=== PATIENT | female | born 1980 | race Caucasian/White ===

== ENCOUNTER 2017-03-21 19:57 | Emergency (ER) | payer MEDICAID ==
[~2017-03-21] VITALS: Ht 160 cm; Wt 63.0 kg
[2017-03-22] MEDS ORDERED: IBUPROFEN 600MG TABLET PO ONE (00:45)
[2017-03-22 01:47] VITALS: BP 127/75
== END 2017-03-22 01:49 | disposition home or self-care (01) ==
LOC: ER 19:58
DX: M54.5 Low back pain (principal); F17.210 Nicotine dependence, cigarettes, uncomplicated; Z98.890 Other specified postprocedural states
CPT/HCPCS: 99282

== ENCOUNTER 2018-02-01 12:46 | Emergency (ER) | payer MEDICAID, OTHER ==
[~2018-02-01] VITALS: Ht 160 cm; Wt 61.0 kg
[2018-02-01] MEDS ORDERED: IBUPROFEN 600MG TABLET PO ONE (14:15)
[2018-02-01] MEDS ORDERED: ONDANSETRON 4MG ODT PO ONE (14:15)
[2018-02-01 14:25] LABS: HEMATOCRIT. 38.4 % (36.0-48.0); HEMOGLOBIN. 13.3 g/dL (12.0-16.0); MEAN CORPUSCULAR HEMOGLOBIN 31.1 pg (28.0-32.0); MEAN CORPUSCULAR VOLUME 89.9 fL (81.0-99.0); MEAN PLATELET VOLUME 10.3 fl (7.4-10.4); PLATELET 169 x1000/uL (130-400); RED BLOOD CELL COUNT 4.27 mill/uL (4.2-5.4); RED CELL DISTRIBUTION WIDTH 14.2 % (11.6-14.6)
[2018-02-01 14:29] LABS: CHLORIDE 109 mEq/L (98-107); PROTHROMBIN TIME 10.2 sec (9.1-11.1)
[2018-02-01 14:38] LABS: HCG SCREEN NEGATIVE
[2018-02-01 15:18] LABS: CLARITY URINE TURBID (CLEAR); COLOR URINE ORANGE (YELLOW); KETONES URINE NEGATIVE (NEGATIVE); LEUKOCYTE ESTERASE URINE TRACE (NEGATIVE); NITRITE URINE NEGATIVE (NEGATIVE); OCCULT BLOOD URINE 3+ (NEGATIVE); PH URINE >=9.0 (4.5-8.0); PROTEIN URINE 1+ (NEGATIVE); SPECIFIC GRAVITY URINE 1.019 (1.005-1.030)
[2018-02-01 15:19] LABS: PLATELET ESTIMATE NORMAL
[2018-02-01 16:16] VITALS: BP 136/89
== END 2018-02-01 16:17 | disposition home or self-care (01) ==
LOC: ER 12:46
DX: N30.80 Other cystitis without hematuria (principal); Z98.890 Other specified postprocedural states
CPT/HCPCS: 36415; 74018; 80053; 81003; 83690; 84703; 85025; 85610; 99285; Q0162

== ENCOUNTER 2018-04-04 21:03 | Emergency (ER) | payer OTHER ==
[~2018-04-04] VITALS: Ht 162.6 cm; Wt 62.0 kg
[2018-04-05] VITALS: BP 136/85
== END 2018-04-05 00:31 | disposition home or self-care (01) ==
LOC: ER 21:03
DX: J30.9 Allergic rhinitis, unspecified (principal); R03.0 Elevated blood-pressure reading, without diagnosis of hypertension
CPT/HCPCS: 99283

== ENCOUNTER 2019-01-21 18:44 | Emergency (ER) | payer OTHER ==
[~2019-01-21] VITALS: Ht 162.6 cm; Wt 63.5 kg
[2019-01-21] MEDS ORDERED: IBUPROFEN 600MG TABLET PO STA (22:15)
[2019-01-21 23:17] VITALS: BP 118/58
== END 2019-01-21 23:40 | disposition home or self-care (01) ==
LOC: ER 18:44
DX: S92.534A Nondisplaced fracture of distal phalanx of right lesser toe(s), initial encounter for closed fracture (principal); W22.8XXA Striking against or struck by other objects, initial encounter; Y93.89 Activity, other specified; Y92.89 Other specified places as the place of occurrence of the external cause; Y99.8 Other external cause status
CPT/HCPCS: 29515; 73660; 81025; 99283; J7040

== ENCOUNTER 2019-09-01 15:24 | Emergency (ER) | payer OTHER ==
[~2019-09-01] VITALS: Ht 167.6 cm; Wt 68.0 kg
[2019-09-01 17:16] LABS: CHLORIDE 106 mEq/L (98-107)
[2019-09-01 17:22] LABS: EOSINOPHILS % 7.5 % (0.0-5.0); HEMATOCRIT. 42.5 % (36.0-48.0); HEMOGLOBIN. 14.4 g/dL (12.0-16.0); LYMPHOCYTES % 24.3 % (20.0-50.0); MEAN CORPUSCULAR HEMOGLOBIN 30.2 pg (28.0-32.0); MEAN CORPUSCULAR VOLUME 89.2 fL (81.0-99.0); MEAN PLATELET VOLUME 9.8 fl (7.4-10.4); MONOCYTES % 7.4 % (2.0-8.0); NEUTROPHILS % 59.8 % (40.0-76.0); PLATELET 185 x1000/uL (130-400); RED BLOOD CELL COUNT 4.76 mill/uL (4.2-5.4); RED CELL DISTRIBUTION WIDTH 13.2 % (11.6-14.6)
[2019-09-01] MEDS ORDERED: ACETAMINOPHEN 325MG TABLET PO ONE (17:30)
[2019-09-01 17:53] LABS: CLARITY URINE CLEAR (CLEAR); COLOR URINE YELLOW (YELLOW); KETONES URINE NEGATIVE (NEGATIVE); LEUKOCYTE ESTERASE URINE TRACE (NEGATIVE); NITRITE URINE NEGATIVE (NEGATIVE); OCCULT BLOOD URINE NEGATIVE (NEGATIVE); PROTEIN URINE NEGATIVE (NEGATIVE); SPECIFIC GRAVITY URINE 1.007 (1.005-1.030); UROBILINOGEN URINE 0.2 E.U./dL (0.2-1.0)
[2019-09-01 18:04] LABS: *AMPHETAMINES SCREEN URINE NEGATIVE (NEGATIVE); METHADONE URINE SCREEN NEGATIVE (NEGATIVE); PHENCYCLIDINE URINE SCREEN NEGATIVE (NEGATIVE)
[2019-09-01 18:05] LABS: *BARBITURATES SCREEN URINE NEGATIVE (NEGATIVE); *BENZODIAZEPINES SCREEN URINE NEGATIVE (NEGATIVE); *COCAINE SCREEN URINE NEGATIVE (NEGATIVE); CANNABINOID URINE SCREEN NEGATIVE (NEGATIVE)
[2019-09-01] MEDS ORDERED: NITROFURANTOIN 100MG M/M CAPSULE PO ONE (19:30)
[2019-09-01 19:38] VITALS: BP 101/56
[2019-09-03 20:40] LABS: OPIATES URINE SCREEN NEGATIVE (NEGATIVE)
== END 2019-09-01 20:07 | disposition home or self-care (01) ==
LOC: ER 15:24
DX: M94.0 Chondrocostal junction syndrome [Tietze] (principal); N39.0 Urinary tract infection, site not specified; R82.71 Bacteriuria; N17.0 Acute kidney failure with tubular necrosis; E86.0 Dehydration; R79.89 Other specified abnormal findings of blood chemistry; K21.9 Gastro-esophageal reflux disease without esophagitis; F17.200 Nicotine dependence, unspecified, uncomplicated; Z98.890 Other specified postprocedural states
CPT/HCPCS: 36415; 71045; 80053; 80305; 81003; 81025; 83880; 84484; 85025; 93005; 99285

== ENCOUNTER 2019-12-26 11:22 | Emergency (ER) | payer OTHER ==
[~2019-12-26] VITALS: Ht 160 cm; Wt 55.0 kg
[2019-12-26 11:36] VITALS: BP 143/81
[2019-12-26] MEDS ORDERED: ACETAMINOPHEN 325MG TABLET PO ONE (12:00)
== END 2019-12-26 13:17 | disposition home or self-care (01) ==
LOC: ER 11:53
DX: J06.9 Acute upper respiratory infection, unspecified (principal); R03.0 Elevated blood-pressure reading, without diagnosis of hypertension
CPT/HCPCS: 71045; 99283